=== PATIENT | female | born 1965 | race Caucasian/White ===

== ENCOUNTER 2025-06-16 07:14 | Outpatient (CLI) | payer OTHER, SELFPAY ==
--- NOTE | 2025-06-16 08:32 | P.ANES_ITS ---
Anesthesia Charges Start Date/Time Anesthesia Start Date: 06/16/25 Anesthesia Start Time: 08:05 Stop Date/Time Anesthesia Stop Date: 06/16/25 Anesthesia Stop Time: 08:30 Coding CPT Codes CPT Codes: ANES UPR LWR GI NDSC PX - 67529 ([id number]) P2 - PATIENT W/MILD SYST DISEASE, QX - APPEALS COORDINATOR SVC W/ MD MED DIRECTION, QK - FACILITY ENGINEER 2-4 CNCRNT ANES PROC
--- NOTE | 2025-06-16 08:32 | W.ANESCHARGE ---
Anesthesia Charges Start Date/Time Anesthesia Start Date: 06/16/25 Anesthesia Start Time: 08:05 Stop Date/Time Anesthesia Stop Date: 06/16/25 Anesthesia Stop Time: 08:30 Coding CPT Codes CPT Codes: ANES UPR LWR GI NDSC PX - 11326 ([id number]) P2 - PATIENT W/MILD SYST DISEASE, QX - STOREROOM ATTENDANT SVC W/ MD MED DIRECTION, QK - OVERLOCK ELASTIC ATTACHER 2-4 CNCRNT ANES PROC
--- NOTE | 2025-06-16 09:04 | P.ANES_ITS ---
Anesthesia Charges Start Date/Time Anesthesia Start Date: 06/16/25 Anesthesia Start Time: 08:05 Stop Date/Time Anesthesia Stop Date: 06/16/25 Anesthesia Stop Time: 08:30 Coding CPT Codes CPT Codes: ANES LWR INTST SCR COLSC - [id number] ([id number]) P2 - PATIENT W/MILD SYST DISEASE, QK - AUTOMATIC NAILING MACHINE FEEDER 2-4 CNCRNT ANES PROC, QX - RETIREMENT MANAGER SVC W/ MD MED DIRECTION
--- NOTE | 2025-06-16 09:04 | W.ANESCHARGE ---
Anesthesia Charges Start Date/Time Anesthesia Start Date: 06/16/25 Anesthesia Start Time: 08:05 Stop Date/Time Anesthesia Stop Date: 06/16/25 Anesthesia Stop Time: 08:30 Coding CPT Codes CPT Codes: ANES LWR INTST SCR COLSC - 00752 ([id number]) P2 - PATIENT W/MILD SYST DISEASE, QK - HEEL NAIL RASPER 2-4 CNCRNT ANES PROC, QX - INFORMATION TECHNOLOGY ANALYST SVC W/ MD MED DIRECTION
== END 2025-06-16 07:15 | disposition home or self-care (01) ==
LOC: OP CLINIC 07:17
PROVIDERS: PCP Family Medicine; Visit Provider Internal Medicine
DX: Z12.11 Encounter for screening for malignant neoplasm of colon (principal); Z85.038 Personal history of other malignant neoplasm of large intestine; Z86.0100 Personal history of colon polyps, unspecified; K57.30 Diverticulosis of large intestine without perforation or abscess without bleeding; Z98.0 Intestinal bypass and anastomosis status
CPT/HCPCS: 00812; 00813; 45378; J2704